=== PATIENT | female | born 1970 | race American Indian/Alaskan Native ===

== ENCOUNTER 2019-08-22 17:51 | Emergency (ER) | payer OTHER ==
[2019-08-22] MEDS ORDERED: ASPIRIN 300 MG RECT SUPP PR ONE (17:59)
[2019-08-22 18:27] LABS: Mean Corpuscular HGB Conc 30 % (30-34); Mean Corpuscular Volume 89 fl (79-97); Platelet Count 237 K/mm3 (140-440); Red Cell Distribution Width 14.7 % (13.2-15.2)
[2019-08-22 18:29] LABS: Hematocrit 43.7 % (30.3-42.9); Hemoglobin 13.2 gm/dl (10.1-14.3)
[2019-08-22 18:38] LABS: INR 1.14 (0.87-1.13)
--- NOTE | 2019-08-22 18:40 | Emergency Department Report ---
ED CPR HPI - General Stated Complaint: CARDIAC ARREST Time Seen by Provider: 08/22/19 17:58 - History of Present Illness Initial Comments: Patient is a 49-year-old F [place] female with a past medical history of congestive heart failure who is being brought in in cardiac arrest. Patient's total downtime in the field was approximately 30 minutes. Patient had a return of spontaneous circulation just prior to arrival. Patient was in ventricular tachycardia. Initial blood pressure was 150 systolic. According to the patient sister she was sitting talking to her daughter at home and then collapsed. There was no complaints of chest pain shortness of breath fevers chills cough cold or congestion. ED Review of Systems ROS: Stated complaint: CARDIAC ARREST Other details as noted in HPI Comment: All other systems reviewed and negative ED Physical Exam - General General appearance: obtunded - Head Head exam: Present: atraumatic, normocephalic - Eye Eye exam: Present: other (Pupils are fixed and dilated) - ENT ENT exam: Present: mucous membranes moist - Neck Neck exam: Present: normal inspection - Respiratory Respiratory exam: Present: rales, rhonchi (With bagging), other (There is a large amount of copious pink-tinged frothy sputum in the endotracheal tube as well as from the nose and mouth) - Cardiovascular Cardiovascular Exam: Present: other (No spontaneous heart tones) - GI/Abdominal GI/Abdominal exam: Present: soft - Extremities Exam Extremities exam: Present: normal inspection - Back Exam Back exam: Present: normal inspection - Psychiatric Psychiatric exam: Present: normal affect, normal mood - Skin Skin exam: Present: warm, dry, intact, normal color. Absent: rash ED Course - Reevaluation(s) Reevaluation #1: 08/22/19 18:38 Please see code sheet. When the patient arrived the rhythm appeared to be in V. tach. She did have a pulse of approximately 2 to 3 minutes and then lost the pulse again. Resuscitative efforts were restarted. Patient was given a total of 5 mg of epinephrine as well as bicarb. During the last several minute so the patient is resuscitative efforts patient was in PEA with a bradycardic rhythm. Ultrasound was used and there was no organized activity. Patient was pronounced at 1821 ED Medical Decision Making - Lab Data Result diagrams: 08/22/19 17:59 Critical care attestation.: If time is entered above; I have spent that time in minutes in the direct care of this critically ill patient, excluding procedure time. ED Disposition Clinical Impression: Cardiopulmonary arrest, Pulmonary edema Disposition: DC-20 Is pt being admited?: No Does the pt Need Aspirin: No Condition: Stable Time of Disposition: 18:40
[2019-08-22 18:41] LABS: BUN/Creatinine Ratio 11; Blood Urea Nitrogen 12 mg/dL (7-17); Calcium 9.4 mg/dL (8.4-10.2); Hemolysis Index 149
[2019-08-22 18:43] LABS: Alanine Aminotransferase 174 units/L (7-56)
[2019-08-22 18:45] LABS: Partial Thromboplastin Time 32.4 Sec. (24.2-36.6)
[2019-08-22 19:10] LABS: Anisocytosis 1+; Basophils % (Manual) 0 % (0.0-1.8); Giant Platelets 1+; Total Cells Counted 100
== END 2019-08-23 00:10 ==
LOC: ED 17:51
DX: I46.9 Cardiac arrest, cause unspecified (principal)
CPT/HCPCS: 36415; 80053; 83880; 84484; 85007; 85025; 85379; 85610; 85730